=== PATIENT | female | born 1950 | race Caucasian/White ===

== ENCOUNTER → 2021-09-25 | Outpatient (REF) | payer SELFPAY ==
[2021-09-25 11:48] LABS: Valproic Acid (Depakene) Level 46 ug/mL (50-100)
== END | disposition home or self-care (01) ==
LOC: OLS.ACW300 06:36
PROVIDERS: Visit Provider Family Medicine
DX: J15.8 Pneumonia due to other specified bacteria (principal); E43 Unspecified severe protein-calorie malnutrition; G40.89 Other seizures; F32.A Depression, unspecified; M54.59 Other low back pain; E87.6 Hypokalemia; Z47.89 Encounter for other orthopedic aftercare
CPT/HCPCS: 36415; 80164